=== PATIENT | female | born 1995 | race Caucasian/White ===

== ENCOUNTER 2018-06-06 18:13 | Emergency (ER) | payer OTHER ==
[~2018-06-06] VITALS: Ht 162.6 cm; Wt 52.2 kg
[2018-06-06 18:46] LABS: URINE BILIRUBIN NEGATIVE (Negative); URINE BLOOD NEGATIVE (Negative); URINE CLARITY CLEAR; URINE COLOR YELLOW; URINE GLUCOSE-RANDOM NEGATIVE (Negative); URINE KETONES NEGATIVE (Negative); URINE LEUKOCYTES-REFLEX 1+ (Negative); URINE NITRITE-REFLEX NEGATIVE (Negative); URINE PROTEIN NEGATIVE (Negative); URINE SPECIFIC GRAVITY <= 1.005 (1.005-1.030)
[2018-06-06 18:55] LABS: SQUAMOUS >10 Many /LPF (0-3); URINE WBC-REFLEX 6-15 Few /HPF (0-5)
[2018-06-06 18:56] LABS: CASTS None Seen /LPF (None Seen); CRYSTALS None Seen /LPF (None Seen); URINE RBC None Seen /HPF (0-2)
[2018-06-06] MEDS ORDERED: ROBAXIN500 MG PO (19:50)
[2018-06-06] MEDS ORDERED: MACROBID 100 M100 M1 PO (19:50)
[2018-06-06 20:13] VITALS: BP 105/64
== END 2018-06-06 20:14 | disposition home or self-care (01) ==
LOC: M.ERS 18:13
PROVIDERS: Nurse Practitioner Family
DX: S39.012A Strain of muscle, fascia and tendon of lower back, initial encounter (principal); S16.1XXA Strain of muscle, fascia and tendon at neck level, initial encounter; N39.0 Urinary tract infection, site not specified; Z98.890 Other specified postprocedural states; V89.0XXA Person injured in unspecified motor-vehicle accident, nontraffic, initial encounter; Y93.89 Activity, other specified; Y92.89 Other specified places as the place of occurrence of the external cause; Y99.8 Other external cause status